=== PATIENT | female | born 1960 | race Caucasian/White ===

== ENCOUNTER → 2020-12-27 | Outpatient (CLI) | payer OTHER ==
[~2020-12-27] MED LIST: PRINIVIL20 MG PO; VITAMIN D32000 UNI1 PO; ZANTAC150 MG PO
== END ==
LOC: MAMO 09:46
DX: R92.8 Other abnormal and inconclusive findings on diagnostic imaging of breast (principal)
CPT/HCPCS: 76642-RT; 77065; G0279